=== PATIENT | female | born 1985 | race Caucasian/White ===

== ENCOUNTER 2019-01-12 16:54 | Emergency (ER) | payer SELFPAY ==
[2019-01-12 18:06] LABS: HIV (1/2) Antibody/Antigen Non-Reactive (NonReactive); HIV 1/2 INDEX 0.13 S/CO (<1.00); Hep C IgG Ab Non-Reactive (NonReactive); Hep C Index 0.15 S/CO (0-0.79)
[2019-01-12 18:07] LABS: HBSAB Concentration 52.09 mIU/mL; Hep B Surf AB Reactive (NonReactive)
== END 2019-01-12 17:00 | disposition home or self-care (01) ==
LOC: ERS 16:54
DX: S61.032A Puncture wound without foreign body of left thumb without damage to nail, initial encounter (principal); W46.1XXA Contact with contaminated hypodermic needle, initial encounter
CPT/HCPCS: 36415; 86706; 86803; 87389; 99282